=== PATIENT | female | born 1945 | race Caucasian/White ===

== ENCOUNTER 2018-01-11 13:16 | Outpatient (REF) | payer MEDICARE ==
[~2018-01-11] VITALS: Ht 165.1 cm; Wt 81.6 kg
[~2018-01-11 13:16] MED LIST: ALENDRONATE70 MG PO; ASPIRIN EC81 MG PO; ATORVASTATIN CA20 MG PO; CALCIUM600 MG PO; FISH OIL1000 MG PO; MULTI VIT PO; PROLIA60 MG/ML SC; VITAMIN D1000 UNI1 PO
== END 2018-01-11 15:01 | disposition home or self-care (01) ==
LOC: INF 13:16
PROVIDERS: ATTEND Internal Medicine
DX: M81.0 Age-related osteoporosis without current pathological fracture (principal)
CPT/HCPCS: J0897

== ENCOUNTER 2020-07-10 | Emergency (ER) | payer MEDICARE ==
[2020-07-10] MEDS ORDERED: CEPHALEXIN500 M1 PO (07:50)
== END 2020-07-10 08:05 | disposition home or self-care (01) ==
DX: S61.011A Laceration without foreign body of right thumb without damage to nail, initial encounter (principal); I10 Essential (primary) hypertension; W26.0XXA Contact with knife, initial encounter; Y93.G3 Activity, cooking and baking; Y92.000 Kitchen of unspecified non-institutional (private) residence as the place of occurrence of the external cause

== ENCOUNTER 2022-02-23 10:40 | Day surgery (SDC) | payer MEDICARE ==
[~2022-02-23] VITALS: Ht 165.1 cm; Wt 83.0 kg
[~2022-02-23 10:40] MED LIST changes: +CEPHALEXIN500 M1 PO; +CEPHALEXIN500 MG PO; +CRANBERR3 PO
[2022-02-23 16:36] VITALS: BP 136/71
== END 2022-02-23 17:57 | disposition home or self-care (01) ==
LOC: ORM 10:40
PROVIDERS: ATTEND Orthopaedic Surgery
PROC: 0RRJ00Z Replacement of Right Shoulder Joint with Reverse Ball and Socket Synthetic Substitute, Open Approach (ICD-10-PCS; principal; 2022-02-23)
PROC: 0LS30ZZ Reposition Right Upper Arm Tendon, Open Approach (ICD-10-PCS; 2022-02-23)
PROC: 3E0T3BZ Introduction of Anesthetic Agent into Peripheral Nerves and Plexi, Percutaneous Approach (ICD-10-PCS; 2022-02-23)
DX: M19.011 Primary osteoarthritis, right shoulder (principal); M75.111 Incomplete rotator cuff tear or rupture of right shoulder, not specified as traumatic; S46.211A Strain of muscle, fascia and tendon of other parts of biceps, right arm, initial encounter; X58.XXXA Exposure to other specified factors, initial encounter
CPT/HCPCS: J0131